=== PATIENT | female | born 1965 | race Caucasian/White ===

== ENCOUNTER 2021-03-26 08:14 | Outpatient (CLI) | payer OTHER, SELFPAY ==
[2021-03-26 19:12] LABS: Basophils Absolute Auto 0.1 K/mm3 (0.0-0.1); Eosinophils Absolute Auto 0.1 K/mm3 (0-0.3); Eosinophils Percent Auto 2.3 % (0-4.4); Hematocrit 40.8 % (37.0-47.0); Hemoglobin 12.7 g/dL (12.0-15.0); Immature Granulocyte Absolute 0.01 K/mm3 (0.00-0.031); Immature Granulocyte Percent A 0.2 % (0-0.5); Lymphocytes Absolute Auto 1.36 K/mm3 (0.9-3.2); Mean Corpuscular HGB Conc 31.1 g/dl (32-36); Mean Corpuscular Hemoglobin 31.9 pg (26-34); Mean Corpuscular Volume 102.5 fl (80-100); Mean Platelet Volume 10.3 fl (7.4-10.4); Monocytes Absolute Auto 0.4 K/mm3 (0.1-0.6); Monocytes Percent Auto 8.8 % (2.6-8.5); Neutrophils Absolute Auto 2.9 K/mm3 (1.3-6.7); Neutrophils Percent Auto 59.7 % (45.5-73.1); Platelet Count Result 253 k/mm3 (150-375); Red Blood Count 3.98 M/mm3 (4.2-5.4); Red Cell Distribution Width 11.8 % (11.5-14.5); White Blood Count 4.9 K/mm3 (4.5-10.0)
[2021-03-26 19:17] LABS: Alanine Aminotransferase 29 U/L (4-35); Albumin Level 4.6 g/dL (3.5-5.1); Alkaline Phosphatase 51 U/L (38-126); Anion Gap 8 mmol/L (8-16); Aspartate Amino Transferase 31 U/L (14-36); Bilirubin,Total 0.4 mg/dL (0.2-1.3); Blood Urea Nitrogen 14 mg/dL (7-17); Calcium 9.9 mg/dL (8.4-10.2); Carbon Dioxide 29 mmol/L (22-30); Chloride 104 mmol/L (98-107); Cholesterol 256 mg/dL (0-200); Estimated Glomerular Filt Rate > 60; Glucose 94 mg/dL (65-110); HDL Direct 83 mg/dL; Potassium 4.4 mmol/L (3.4-5.0); Sodium 141 mmol/L (137-145); Triglycerides 105 mg/dL (<150)
[2021-03-26 19:27] LABS: LDL Cholesterol Direct 144 mg/dL
== END 2021-03-26 08:15 | disposition home or self-care (01) ==
LOC: ANHBWCLAB 08:15
PROVIDERS: PCP Family Medicine; Visit Provider Family Medicine
DX: Z00.00 Encounter for general adult medical examination without abnormal findings (principal)
CPT/HCPCS: 36415; 80053; 80061; 85025

== ENCOUNTER 2023-01-04 08:37 | Outpatient (CLI) | payer OTHER, SELFPAY ==
[2023-01-04 18:31] LABS: Hematocrit 41.3 % (37.0-47.0); Hemoglobin 12.8 g/dL (12.0-15.0); Mean Corpuscular Hemoglobin 31.5 pg (26-34); Mean Corpuscular Volume 101.7 fl (80-100); Mean Platelet Volume 10.5 fl (7.4-10.4); Platelet Count Result 231 k/mm3 (150-375); Red Blood Count 4.06 M/mm3 (4.2-5.4); Red Cell Distribution Width 11.7 % (11.5-14.5); White Blood Count 3.7 K/mm3 (4.5-10.0)
[2023-01-04 19:52] LABS: Alanine Aminotransferase 24 U/L (6-35); Albumin Level 4.7 g/dL (3.5-5.1); Alkaline Phosphatase 46 U/L (38-126); Anion Gap 5 mmol/L (8-16); Aspartate Amino Transferase 47 U/L (14-36); Bilirubin,Total 0.6 mg/dL (0.2-1.3); Blood Urea Nitrogen 15 mg/dL (7-17); Calcium 9.5 mg/dL (8.4-10.2); Carbon Dioxide 31 mmol/L (22-30); Chloride 101 mmol/L (98-107); Cholesterol 248 mg/dL (0-200); Estimated Glomerular Filt Rate > 60; Glucose 85 mg/dL (65-110); HDL Direct 74 mg/dL; Potassium 4.4 mmol/L (3.4-5.0); Sodium 137 mmol/L (137-145); Triglycerides 106 mg/dL (<150)
[2023-01-04 20:03] LABS: LDL Cholesterol Direct 128 mg/dL
== END 2023-01-04 08:38 | disposition home or self-care (01) ==
LOC: ANHBWCLAB 08:38
PROVIDERS: PCP Family Medicine; Visit Provider Family Medicine
DX: Z00.00 Encounter for general adult medical examination without abnormal findings (principal)
CPT/HCPCS: 36415; 80053; 80061; 85027

== ENCOUNTER 2023-05-23 10:10 | Outpatient (CLI) | payer OTHER, SELFPAY ==
[2023-05-23 19:27] LABS: Appearance Urine Clear (Clear); Bacteria Urine 2+ /hpf; Bilirubin Urine Negative (Negative); Blood Urine Negative (Negative); Color Urine Yellow (Yellow); Glucose Urine UA Negative (Negative); Ketones Urine Negative (Negative); Leukocyte Esterase Ur 1+ LEU/UL (NEGATIVE); Nitrate Urine Positive (Negative); Non Pathogenic Casts 0-2; Protein Urine Negative (Negative); RBC Urine 0-2 /hpf (0-2); Specific Grav Ur 1.009 (1.001-1.035); Squamous Epithelial Cell Urine Occasional /hpf (Few); Urobilinogen Urine 0.2 mg/dL (<2.0); WBC Urine 21-50 /hpf (0-3); pH Urine 6.5 (5.0-9.0)
[2023-05-23 19:45] LABS: Add Urine Microscopic? YES
== END 2023-05-23 10:11 | disposition home or self-care (01) ==
PROVIDERS: PCP Nurse Practitioner Adult Health; Visit Provider Nurse Practitioner Adult Health
DX: R39.9 Unspecified symptoms and signs involving the genitourinary system (principal)
CPT/HCPCS: 81001

== ENCOUNTER 2024-11-07 07:11 | Outpatient (CLI) | payer OTHER, SELFPAY ==
[2024-11-07 18:34] LABS: Hematocrit 41.0 % (37.0-47.0); Hemoglobin 13.1 g/dL (12.0-15.0); Mean Corpuscular HGB Conc 32.0 g/dl (32-36); Mean Corpuscular Hemoglobin 32.3 pg (26-34); Mean Corpuscular Volume 101.0 fl (80-100); Platelet Count Result 239 k/mm3 (150-375); Red Blood Count 4.06 M/mm3 (4.2-5.4); White Blood Count 3.4 K/mm3 (4.5-10.0)
[2024-11-07 18:50] LABS: Add Urine Microscopic? YES; Appearance Urine Cloudy (Clear); Glucose Urine UA Negative (Negative); Leukocyte Esterase Ur 3+ LEU/UL (Negative); Nitrate Urine Positive (Negative); Non Pathogenic Casts 0-2; Specific Grav Ur 1.014 (1.001-1.035)
[2024-11-07 19:45] LABS: Alanine Aminotransferase 21 U/L (6-35); Albumin Level 4.8 g/dL (3.5-5.1); Alkaline Phosphatase 52 U/L (38-126); Anion Gap 9 mmol/L (4-12); Aspartate Amino Transferase 55 U/L (14-36); Bilirubin,Total 0.6 mg/dL (0.2-1.3); Blood Urea Nitrogen 13 mg/dL (7-17); Calcium 9.8 mg/dL (8.4-10.2); Carbon Dioxide 30 mmol/L (22-30); Chloride 100 mmol/L (98-107); Cholesterol 259 mg/dL (0-200); Estimated Glomerular Filt Rate > 60; Glucose 87 mg/dL (65-110); HDL Direct 80 mg/dL; Potassium 4.3 mmol/L (3.4-5.0); Sodium 139 mmol/L (137-145); Total Protein 7.9 g/dL (6.3-8.2); Triglycerides 85 mg/dL (<150)
[2024-11-07 19:46] LABS: Iron 144 ug/dL (37-170)
[2024-11-07 19:55] LABS: Percent Iron Saturation 45 % (20-50)
[2024-11-07 20:20] LABS: Hepatitis B Surface Antigen Negative (Negative)
[2024-11-07 20:26] LABS: HAV RESULT Negative (Negative); Hepatitis B Core IgM Result Negative (Negative)
[2024-11-07 20:32] LABS: Ferritin 126.00 ng/mL (11.1-264)
[2024-11-07 20:38] LABS: Vitamin B12 263.0 pg/mL (239-931)
== END 2024-11-07 07:12 | disposition home or self-care (01) ==
LOC: ANHASCIMG 07:12 → ANHBWCLAB 07:13
PROVIDERS: PCP Family Medicine; Visit Provider Family Medicine
DX: R74.01 Elevation of levels of liver transaminase levels (principal); Z00.00 Encounter for general adult medical examination without abnormal findings; R39.9 Unspecified symptoms and signs involving the genitourinary system; D72.819 Decreased white blood cell count, unspecified
CPT/HCPCS: 36415; 80053; 80061; 80074; 81001; 82306; 82607; 82728; 83540; 83550; 85027; 87086

== ENCOUNTER 2024-11-29 08:11 | Outpatient (CLI) | payer OTHER, SELFPAY ==
--- NOTE | ~2024-11-29 | US_ITS ---
US abdomen limited Indication: R74.01 - Elevation of levels of liver transaminase levels Comparison: None Technique: Carrasco-scale and color Doppler images were obtained. Findings: LIVER: Unremarkable, liver contours intact, no lesions. Normal echogenicity. . GALLBLADDER/BILIARY: There is a probable gallbladder polyp measuring 3 x 3 mm, no wall thickening or pericholecystic fluid. CBD 4 mm. Young Harris sign negative. PANCREAS: Unremarkable. Right Kidney: Right kidney 10.5 cm, normal. Impression: 1. Probable gallbladder polyp Reviewed, dictated and finalized at location A. Impression: 1. Probable gallbladder polyp
== END 2024-11-29 08:12 | disposition home or self-care (01) ==
LOC: MICIMG 08:11
PROVIDERS: PCP Family Medicine; Visit Provider Family Medicine
DX: R74.01 Elevation of levels of liver transaminase levels (principal)
CPT/HCPCS: 76705

== ENCOUNTER 2025-02-23 09:10 | Emergency (ER) | payer OTHER, SELFPAY ==
--- OUTSIDE RECORDS SUMMARY | 2025-02-23 09:12 | XMS_ITS | Encounter Summary ---
Author Organization Address [address] [place] [address] Care Team Providers Care Camera Engineer Name Role Phone Unavailable Primary Care Provider Unavailabl e Encounter Details Date Type Department Care Team (Late st Contact Info) Description 04/21/2006 Orders Only [facility] Internal Medicine [address] [address] Grabiel Huang MD [address] [place] [phone] Social History Tobacco Use Types Packs/Day Years Used Date Smoking Tobacco: Never Assessed Comments Unknown Sex and Gender Information Value Date Recorded Sex Assigned at Not on file Legal Sex Female 4:47 AM WAD IMPREGNATOR Gender Identity Not on file Sexual Orientation Not on file documented as of this encounter Progress Notes * Grabiel Huang MD - 08/10/2007 4:43 PM CDT TIME:09:15 am PATIENT`S HOME PHONE: PATIENT`S WORK PHONE: PATIENT`S INSURANCE: [facility] WHO TOOK THE CALL: Venecia Carrillo L GENERAL INFORMATION ALTERNATIVE PHONE NUMBER: [phone] cell WHO CALLED: Patient called. PHARMACY NUMBER: [phone] SECTION 1: The Singulair samples you gave the pt at her last ov really worked. REQUESTED ACTION emma 04/21/06 at 09:17 am: MEDICATION REQUEST: New script for Singulair called into pharmacy. DOCTOR`S RESPONSE: estefanía 04/21/06 at 09:37 am MEDICATIONS: Call in to Pharmacy SINGULAIR ORAL TABLET 10 MG, 1 Every Day, 90 Dispensed, 3 Fills, 90 Duration/Days Supply, status: CONTINUED, 04/21/2006. FINAL ACTION: farrjr 04/21/06 at 10:55 am Called pharmacy at 04/21/06 at 10:55 am. documented in this encounter Plan of Treatment Not on file documented as of this encounter Visit Diagnoses Not on filedocumented in this encounter
--- OUTSIDE RECORDS SUMMARY | 2025-02-23 09:12 | XMS_ITS | Clinical Summary ---
Author Organization [facility] Address [address] Real: Epic Prelude ADT ALEKSANDAR CAZARES [address] Care Team Providers Care Cooker Sulfite Name Role Phone Unavailable Primary Care Provider Unavailabl e Medications ADVAIR DISKUS 100 MCG-50 MCG/DOSE FOR INHALATION 1 Two Times A Day 0.00 0 01/25/2006 Active ZITHROMAX Z-HINA 250 MG TAB DIRECTED 1.00 0 12/26/2005 Active PATANOL 0.1 % EYE DROPS 1 Two Times A Day 0.00 1 06/22/2005 Active ARLIN 180 MG TAB 1 Every Day 30.00 3 01/25/2006 Active ADVAIR DISKUS 250 MCG-50 MCG/DOSE FOR INHALATION 1 Two Times A Day 2.00 2 03/01/2006 Active SINGULAIR 10 MG TAB 1 Every Day 90.00 3 04/21/2006 Active Active Problems Problem Noted Date Diagnosed Date Unspecified asthma(493.90) 03/01/2006 Respiratory abnormality, unspecified 01/25/2006 Routine general medical exam ination at a health care facility 06/22/2005 Family history of other cardiovascular diseases( V17.49) 06/22/2005 Overview (04/14/2010): Updating IMO/ICD9 Code and Description Allergic rhinitis, cause unspecified 06/22/2005 Impacted cerumen 06/22/2005 Screening for thyroid disorder 06/22/2005 Screening for lipoid disorders 06/22/2005 Need for prophylactic vaccin ation with tetanus-diphtheria (Td) 06/22/2005 Immunizations Immunization Administration Dates Next Due (TDVAX)(7 YRS UP) TETANUS AN D DIPHTHERIA TOXOIDS, ADSORBED (2 LF OF TETANUS TOXOID AND 2 LF OF DIPHTHERIA TOXOID), 0.5ML (PF), IM 06/22/2005 Social History Tobacco Use Types Packs/Day Years Used Date Smoking Tobacco: Never Assessed Comments Unknown Sex and Gender Information Value Date Recorded Sex Assigned at Not on file Legal Sex Female 4:47 AM INTEGRATION PROJECT MANAGER Gender Identity Not on file Sexual Orientation Not on file Last Filed Vital Signs Vital Sign Reading Time Taken Comments Blood Pressure 110/70 03/01/2006 11:45 AM INTEGRATION PROJECT MANAGER Pulse - - Temperature 36.9 C (98.4 F) 01/25/2006 2:00 PM INTEGRATION PROJECT MANAGER Respiratory Rate - - Oxygen Saturation - - Inhaled Oxygen Concentration - - Weight 56.7 kg (125 lb) 03/01/2006 11:45 AM INTEGRATION PROJECT MANAGER Height - - Body Mass Index - - Plan of Treatment Health Maintenance Due Date Last Done Comments HPV/Cotest (21-29) 02/02/1985 CERVICAL CANCER SCREENING 02/02/1994 HPV/Cotest (30-65) 02/02/1994 PAP SMEAR 02/02/1994 BREAST CANCER SCREENING 2004 DTAP/TDAP/TD VACCINES (1 - Tdap) 06/23/2005 06/23/19 06 COLORECTAL SCREENING 02/02/2009 Colorectal Cancer Screening 02/02/2009 FIT-DNA Q 3 years 02/02/2009 FIT/FOBT Q 1 year 02/02/2009 Flex Sig/CT Colonography Q 5 years 02/02/2009 ZOSTER VACCINE (1 of 2) 02/02/2014 INFLUENZA VACCINE (#1) 2024 RSV VACCINE (60+ or ) (1 - 1-dose 75+ series) 02/02/2039
--- OUTSIDE RECORDS SUMMARY | 2025-02-23 09:13 | XMS_ITS | Encounter Summary ---
Author Organization [facility] Address [address] [place] [address] Care Team Providers Care Tariff Supervisor Name Role Phone Unavailable Primary Care Provider Unavailabl e Encounter Details Date Type Department Care Team (Late st Contact Info) Description 01/25/2006 Outpatient Historical [facility] Internal Medicine [address] [address] Grabiel Huang MD [address] [place] [phone] Social History Tobacco Use Types Packs/Day Years Used Date Smoking Tobacco: Never Assessed Comments Unknown Sex and Gender Information Value Date Recorded Sex Assigned at Not on file Legal Sex Female 4:47 AM REFRACTIVE SURGEON Gender Identity Not on file Sexual Orientation Not on file documented as of this encounter Last Filed Vital Signs Vital Sign Reading Time Taken Comments Blood Pressure 120/70 01/25/2006 2:00 PM REFRACTIVE SURGEON Pulse - - Temperature 36.9 C (98.4 F) 01/25/2006 2:00 PM REFRACTIVE SURGEON Respiratory Rate - - Oxygen Saturation - - Inhaled Oxygen Concentration - - Weight 56.2 kg (124 lb) 01/25/2006 2:00 PM REFRACTIVE SURGEON Height - - Body Mass Index - - documented in this encounter Plan of Treatment Not on file documented as of this encounter Visit Diagnoses Not on filedocumented in this encounter
--- OUTSIDE RECORDS SUMMARY | 2025-02-23 09:13 | XMS_ITS | Encounter Summary ---
Author Organization [facility] Address [address] [place] [address] Care Team Providers Care Hops Farmworker Name Role Phone Unavailable Primary Care Provider Unavailabl e Encounter Details Date Type Department Care Team (Late st Contact Info) Description 03/01/2006 Outpatient Historical [facility] Internal Medicine [address] [address] Grabiel Huang MD [address] [place] [phone] Social History Tobacco Use Types Packs/Day Years Used Date Smoking Tobacco: Never Assessed Comments Unknown Sex and Gender Information Value Date Recorded Sex Assigned at Not on file Legal Sex Female 4:47 AM CRATE LINER Gender Identity Not on file Sexual Orientation Not on file documented as of this encounter Last Filed Vital Signs Vital Sign Reading Time Taken Comments Blood Pressure 110/70 03/01/2006 11:45 AM CRATE LINER Pulse - - Temperature - - Respiratory Rate - - Oxygen Saturation - - Inhaled Oxygen Concentration - - Weight 56.7 kg (125 lb) 03/01/2006 11:45 AM CRATE LINER Height - - Body Mass Index - - documented in this encounter Plan of Treatment Not on file documented as of this encounter Visit Diagnoses Not on filedocumented in this encounter
--- OUTSIDE RECORDS SUMMARY | 2025-02-23 09:13 | XMS_ITS | Encounter Summary ---
Author Organization [facility] Address [address] [place] [address] Care Team Providers Care Science Education Professor Name Role Phone Unavailable Primary Care Provider Unavailabl e Encounter Details Date Type Department Care Team (Late st Contact Info) Description 06/22/2005 Outpatient Historical [facility] Internal Medicine [address] [address] Grabiel Huang MD [address] [place] [phone] Social History Tobacco Use Types Packs/Day Years Used Date Smoking Tobacco: Never Assessed Comments Unknown Sex and Gender Information Value Date Recorded Sex Assigned at Not on file Legal Sex Female 4:47 AM PULP MAKER Gender Identity Not on file Sexual Orientation Not on file documented as of this encounter Plan of Treatment Not on file documented as of this encounter Visit Diagnoses Not on filedocumented in this encounter
--- OUTSIDE RECORDS SUMMARY | 2025-02-23 09:13 | XMS_ITS | Encounter Summary ---
Author Organization [facility] Address [address] [place] [address] Care Team Providers Care Director Of Recruitment Name Role Phone Unavailable Primary Care Provider Unavailabl e Encounter Details Date Type Department Care Team (Late st Contact Info) Description 06/22/2005 Outpatient Historical [facility] Internal Medicine [address] [address] Grabiel Huang MD [address] [place] [phone] Social History Tobacco Use Types Packs/Day Years Used Date Smoking Tobacco: Never Assessed Comments Unknown Sex and Gender Information Value Date Recorded Sex Assigned at Not on file Legal Sex Female 4:47 AM DITTO MACHINE OPERATOR Gender Identity Not on file Sexual Orientation Not on file documented as of this encounter Plan of Treatment Not on file documented as of this encounter Visit Diagnoses Not on filedocumented in this encounter
--- OUTSIDE RECORDS SUMMARY | 2025-02-23 09:13 | XMS_ITS | Encounter Summary ---
Author Organization [facility] Address [address] [place] [address] Care Team Providers Care Painting Worker Name Role Phone Unavailable Primary Care Provider Unavailabl e Encounter Details Date Type Department Care Team (Late st Contact Info) Description 06/22/2005 Outpatient Historical [facility] Internal Medicine [address] [address] Grabiel Huang MD [address] [place] [phone] Social History Tobacco Use Types Packs/Day Years Used Date Smoking Tobacco: Never Assessed Comments Unknown Sex and Gender Information Value Date Recorded Sex Assigned at Not on file Legal Sex Female 4:47 AM LIFT BUILDER WHOLE Gender Identity Not on file Sexual Orientation Not on file documented as of this encounter Plan of Treatment Not on file documented as of this encounter Visit Diagnoses Not on filedocumented in this encounter
--- OUTSIDE RECORDS SUMMARY | 2025-02-23 09:13 | XMS_ITS | Encounter Summary ---
Author Organization [facility] Address [address] [place] [address] Care Team Providers Care Maintenance Painter Apprentice Name Role Phone Unavailable Primary Care Provider Unavailabl e Encounter Details Date Type Department Care Team (Late st Contact Info) Description 06/22/2005 Outpatient Historical [facility] Internal Medicine [address] [address] Grabiel Huang MD [address] [place] [phone] Social History Tobacco Use Types Packs/Day Years Used Date Smoking Tobacco: Never Assessed Comments Unknown Sex and Gender Information Value Date Recorded Sex Assigned at Not on file Legal Sex Female 4:47 AM MEDICAL VAN DRIVER Gender Identity Not on file Sexual Orientation Not on file documented as of this encounter Plan of Treatment Not on file documented as of this encounter Visit Diagnoses Not on filedocumented in this encounter
--- OUTSIDE RECORDS SUMMARY | 2025-02-23 09:13 | XMS_ITS | Encounter Summary ---
Author Organization [facility] Address [address] [place] [address] Care Team Providers Care Wash Oil Cooler Operator Name Role Phone Unavailable Primary Care Provider Unavailabl e Encounter Details Date Type Department Care Team (Late st Contact Info) Description 06/22/2005 Orders Only [facility] Internal Medicine [address] [address] Grabiel Huang MD [address] [place] [phone] Social History Tobacco Use Types Packs/Day Years Used Date Smoking Tobacco: Never Assessed Comments Unknown Sex and Gender Information Value Date Recorded Sex Assigned at Not on file Legal Sex Female 4:47 AM FRETTED INSTRUMENT REPAIRER Gender Identity Not on file Sexual Orientation Not on file documented as of this encounter Progress Notes * Grabiel Huang MD - 12/28/2007 12:16 AM CDT SPECIALIST REFERRAL REQUEST DATE: JUN 22, 2005 Note created by: Mukund Mendez N 09:07 a Patient Name : MIGUELINA CULLEN Address: [address] [place] [address] D.O.B: 1965 SSN: Parent/Guardian if applicable: Patient Insurance: ID#: Group/Policy#: * Grabiel Huang MD - 12/28/2007 12:16 AM CDT SPECIALIST REFERRAL REQUEST DATE: JUN 22, 2005 Note created by: Mukund Mendez N 09:09 a Patient Name : MIGUELINA CULLEN Address: [address] [place] [address] D.O.B: 1965 SSN: Parent/Guardian if applicable: Patient Insurance: ID#: Group/Policy#: * Grabiel Huang MD - 12/28/2007 12:16 AM CDT SPECIALIST REFERRAL REQUEST DATE: JUN 22, 2005 Note created by: Mukund Mendez, Rachid 09:10 a Patient Name : MIGUELINA CULLEN Address: [address] [place] [address] D.O.B: 1965 SSN: Parent/Guardian if applicable: Patient Insurance: ID#: Group/Policy#: * Grabiel Huang MD - 12/28/2007 12:16 AM CDT WEIGHT: 122lbs BLOOD PRESSURE: 120/70 Right Arm Sitting NURSE NAME: Vanessa Mukund, N CHIEF COMPLAINT Seen as a new patient to get established with the practice. HISTORY: HISTORY: V17.4-FAMILY HISTORY OF CARDIOVASCULAR DISEASE father AAA 477.9-RHINITIS ALLERGIC UNSPECIFIED mild sinus, eye sx with season change V70.0-ROUTINE GENERAL MEDICAL EXAMINATION 380.4-CERUMEN IMPACTION recurrent right ear ROS: GENERAL: Normal activity and energy level, no change in appetite. No major weight gain or loss. No malaise, chills, fever, diaphoresis. ALLERGIC/IMMUNOLOGIC: HAS ENVIRONMENTAL ALLERGIES. EYES: No vision changes or diplopia. ENT: No hearing loss, epistaxis, hoarseness or dysphagia. No sinus congestion. ENDOCRINE: No heat or cold intolerance, no excessive thirst. CARDIAC: No chest pain, palpitations, orthopnea, dyspnea on exertion, or paroxysmal nocturnal dyspnea. RESPIRATORY: No dyspnea, cough, hemoptysis or wheezing. SKIN/BREAST/CHEST: No rashes or non-healing lesions. No breast symptoms noted. HEMATOLOGIC/LYMPHATIC: No anemia, easy bruising, bleeding or swollen nodes. : No frequency, urgency, hematuria or dysuria. GI: No abdominal pain, nausea, vomiting, diarrhea, constipation, melena, or hematochezia. NEUROLOGIC: No weakness, dizziness, loss of consciousness, transient ischemic symptoms, or seizures. MUSCULOSKELETAL: No muscle or joint pain, weakness, swelling or inflammation. No restriction of motion, no atrophy or backache. PSYCHIATRIC: No increased nervousness, mood changes or depression. Coping well. PAST MEDICAL HISTORY: SURGICAL: , Tubal, Lumpectomy-left breast FAMILY HISTORY: FATHER: The father is living. Illnesses: Hypertension. MOTHER: The mother is living., Thyroid Prob. SIBLINGS: 4 Brothers all Healthy SOCIAL HISTORY: MARITAL HISTORY: , living with spouse. LIVING WILL: The patient does not have a living will. TOBACCO USE: Has no significant smoking history. OCCUPATION: . Deep Fat Fry Cook ALCOHOL: Drinks a minimal amount of alcohol. CAFFEINE: A minimal amount of caffeinated beverages daily. EXERCISES: The patient exercises. DIET: Follows no specific diet. SAFETY ISSUES: Uses seat belts. PHYSICAL EXAMINATION: CONSTITUTIONAL: GENERAL APPEARANCE: Healthy appearing patient in no distress. EYES: CONJUNCTIVAE/LIDS: CONJUNCTIVAL INFLAMMATION BILATERALLY.mild EARS, NOSE, MOUTH AND THROAT: EARS: CERUMEN IN RIGHT EAR INCREASED. NECK/THYROID: Trachea midline. No thyroid enlargement, tenderness, or mass. No supraclavicular or cervical adenopathy. RESPIRATORY: Clear to auscultation and percussion. Normal respiratory effort. CARDIOVASCULAR: CARDIAC: Regular rhythm. No murmurs, rubs, or gallops. ARTERIAL: Aortic pulses of normal amplitude with no bruits. EDEMA/VARICOSITIES OF EXTREMITIES: No edema or varicosities. GASTROINTESTINAL: ABDOMEN: Soft, non-tender, without masses. Bowel sounds active. LIVER/SPLEEN/KIDNEY: No hepatosplenomegaly, tenderness or nodularity. Kidneys not palpable. OFFICE PROCEDURES: PROCEDURE: Ear lavage performed on patient. The cerumen impaction was successfully removed by ear wash irrigation so as to visualize TM. ASSESSMENT/PLAN: V70.0-ROUTINE GENERAL MEDICAL EXAMINATION LAB ORDERS: fasting Order number: [id number] Test Ordered: CBC (INCLUDES DIFF/PLT) 6399 Order number: [id number] Test Ordered: COMPREHENSIVE METABOLIC PANEL W/ GLOMERULAR FILTRATION RATE, ESTIMATED (EGFR) 90952 Order number: [id number] Test Ordered: LIPID PANEL 7600 Order number: [id number] Test Ordered: TSH 899 Order number: [id number] Test Ordered: INJ-TETANUS & DIPTHERIA TOXOID 77620 V17.4-FAMILY HISTORY OF CARDIOVASCULAR DISEASE discussed, check chol 477.9-RHINITIS ALLERGIC UNSPECIFIED MEDICATIONS: PATANOL OPHTHALMIC SOLUTION 0.1 %, 1 Two Times A Day, 1 Fills, 30 Duration/Days Supply, status: NEWPRESCRIPTION, 06/22/2005. 380.4-CERUMEN IMPACTION LAB ORDERS: Order number: [id number] Test Ordered: REMOVE CERUMEN IMPACT 88553 RETURN VISIT : Instructed to call if not improving. Electronically Signed by: Grabiel Huang MD on Wednesday, June 22, 2005 documented in this encounter Plan of Treatment Not on file documented as of this encounter Visit Diagnoses Not on filedocumented in this encounter
--- OUTSIDE RECORDS SUMMARY | 2025-02-23 09:13 | XMS_ITS | Encounter Summary ---
Author Organization [facility] Address [address] [place] [address] Care Team Providers Care Lye Treater Name Role Phone Unavailable Primary Care Provider Unavailabl e Encounter Details Date Type Department Care Team (Late st Contact Info) Description 12/26/2005 Orders Only [facility] Internal Medicine [address] [address] Grabiel Huang MD [address] [place] [phone] Social History Tobacco Use Types Packs/Day Years Used Date Smoking Tobacco: Never Assessed Comments Unknown Sex and Gender Information Value Date Recorded Sex Assigned at Not on file Legal Sex Female 4:47 AM DIRECTOR OF GLOBAL MARKETING Gender Identity Not on file Sexual Orientation Not on file documented as of this encounter Progress Notes * Grabiel Huang MD - 01/01/2008 8:45 PM CDT TIME:10:54 am PATIENT`S HOME PHONE: PATIENT`S WORK PHONE: PATIENT`S INSURANCE: [facility] WHO TOOK THE CALL: Venecia Carrillo L GENERAL INFORMATION ALTERNATIVE PHONE NUMBER: [phone] [facility] 8:30p w# WHO CALLED: Patient called. Patient reports no known allergies. PHARMACY NUMBER: [phone] PROBLEMS: CONGESTION: Patient complains of chest congestion, complains of sinus congestion. The symptoms began approximately 6 days ago. Therapies tried include cough syrup. COUGH:Patient complains of cough. The symptoms began approximately 6 days ago. Nothing coming up. Keeps her awake at night. Wheezing. HEADACHE: Patient complains of headache. off & on from coughing. SORE THROAT: Patient complains of sore throat. The sore throat began approximately 2 days ago. Since she's been coughing so much. SECTION 1: REQUESTED ACTION emma 12/26/05 at 10:58 am: MEDICATION REQUEST: Her first day off is . She works 12 hr shifts. Patient wants medications and can not come in. DOCTOR`S RESPONSE: estefanía 12/26/05 at 11:09 am MEDICATIONS: Call in to Pharmacy ZITHROMAX Z-HINA ORAL TABLET 250 MG, DIRECTED, 1 Dispensed, status: NEW PRESCRIPTION, 12/26/2005.See thurs if not improving FINAL ACTION: browyazmin 12/26/05 at 12:18 pm Called pharmacy at 12/26/05 at 12:18 pm. documented in this encounter Plan of Treatment Not on file documented as of this encounter Visit Diagnoses Not on filedocumented in this encounter
--- OUTSIDE RECORDS SUMMARY | 2025-02-23 09:13 | XMS_ITS | Encounter Summary ---
Author Organization [facility] Address [address] [place] [address] Care Team Providers Care Boner Meat Name Role Phone Unavailable Primary Care Provider Unavailabl e Encounter Details Date Type Department Care Team (Late st Contact Info) Description 01/25/2006 Orders Only [facility] Internal Medicine [address] [address] Grabiel Huang MD [address] [place] [phone] Social History Tobacco Use Types Packs/Day Years Used Date Smoking Tobacco: Never Assessed Comments Unknown Sex and Gender Information Value Date Recorded Sex Assigned at Not on file Legal Sex Female 4:47 AM PIANO CASE MAKER Gender Identity Not on file Sexual Orientation Not on file documented as of this encounter Progress Notes * Grabiel Huang MD - 01/01/2008 11:38 PM CDT WEIGHT: 124lbs BLOOD PRESSURE: 120/70 Right Arm Sitting TEMPERATURE: 36.89??c Oral NURSE NAME: JonhTram R CHIEF COMPLAINT Patient complains of shortness of breath. watery eyes and sneezing. HISTORY: HISTORY: 477.9-RHINITIS ALLERGIC UNSPECIFIED worse x 1 mo 786.00-DYSPNEA AND RESP ABNORMALITY UNSPEC since illness 1 mo ago, intermittent cannot get breath PHYSICAL EXAMINATION: CONSTITUTIONAL: GENERAL APPEARANCE: Healthy appearing patient in no distress. EARS, NOSE, MOUTH AND THROAT: EARS: Tympanic membranes shiny without retraction. Canals unremarkable. Hearing grossly normal. ORAL: Inspection of gums, lips, palate, and teeth normal. No scars, lesions, or masses. Oral mucosaunremarkable with non-inflamed posterior pharynx. NECK/THYROID: Trachea midline. No thyroid enlargement, tenderness, [...] hepatosplenomegaly, tenderness or nodularity. Kidneys not palpable. ASSESSMENT/PLAN: 477.9-RHINITIS ALLERGIC UNSPECIFIED rx 786.00-DYSPNEA AND RESP ABNORMALITY UNSPEC pk flow 300-350 MEDICATIONS: ARLIN ORAL TABLET 180 MG, 1 Every Day, 30 Dispensed, 3 Fills, status: NEW PRESCRIPTION, 01/25/2006. ADVAIR DISKUS INHALATION MISCELLANEOUS 100-50 MCG/DOSE, 1 Two Times A Day, 30 Duration/Days Supply,status: NEW PRESCRIPTION, 01/25/2006. LAB ORDERS: Order number: [id number] Test Ordered: [facility] MAINTENANCE: rec flu vaccine, consider pnvx at fu RETURN VISIT : Patient instructed to return in 1 month. Electronically Signed by: Grabiel Huang MD on Wednesday, January 25, 2006 documented in this encounter Plan of Treatment Not on file documented as of this encounter Visit Diagnoses Not on filedocumented in this encounter
--- OUTSIDE RECORDS SUMMARY | 2025-02-23 09:13 | XMS_ITS | Clinical Summary ---
Author Organization [facility] Address [address] [place] [address] Phone Care Team Providers Care Health Education Coordinator Name Role Phone Torito Salcido MD Primary Care Provider [phone] Encounters Date Type Department Care Team Description 01/07/2025 [facility]phone [facility] [address] [place] [id number] Torito Salcido MD 11/27/2024 Transcribe Orders [facility] Central Scheduling [address] [place] [address] Torito Salcido MD Other specified disorders of breast (Primary Dx) 11/25/2024 2:47 PM CDT - 11/25/2024 11:59 PM CDT [facility] [address] [place] [address] Torito Salcido MD Discharge Disposition: Discharged to home or Selfcare 11/24/2024 Travel from Last 3 Months Family History Medical History Relation Name Comments Breast Cancer Maternal Aunt Relation Name Status Comments Maternal Aunt Social History Tobacco Use Types Packs/Day Years Used Date Smoking Tobacco: Never Assessed Comments No Sex and Gender Information Value Date Recorded Sex Assigned at Not on file Legal Sex Female 7:42 PM CDT Gender Identity Not on file Sexual Orientation Not on file Plan of Treatment Health Maintenance Due Date Last Done Comments Hepatitis C Virus (HCV) Screening 1965 TdaP Immunization 1965 Pap Smear 02/02/1985 Cervical Cancer Screening (CCS) 02/02/1994 HPV/Cotest 02/02/1994 Cologuard 02/02/2009 Colonoscopy 02/02/2009 Colorectal Cancer Screening 02/02/2009 Immunochemical Fecal Occult Blood 02/02/2009 Pneumococcal Immunization (5 0+ years) (1 of 1 - PCV) 02/02/2014 Zoster Immunization (1 of 2) 02/02/2014 Influenza Immunization (#1) 2024 SARS-COV-2 Immunization ( - season) 2024 Mammogram 11/25/2025 11/25/2024, 06/28/2023, 11/16/2016 Respiratory Syncytial Virus (RSV) Immunization (Adult) (1 - 1-dose 75+ series) 02/02/2039 DTaP/Tdap/Td Immunization Discontinued 06/22/2005 Hepatitis B Immunization Aged Out No longer eligible based on patient's age to complete this topic Human Papillomavirus (HPV) Immunization Aged Out No longer eligible based on patient's age to complete this topic Meningococcal Immunization (ACWY) Aged Out No longer eligible based on patient's age to complete this topic Rotavirus Immunization Aged Out No lo nger eligible based on patient's age to complete this topic Procedures Procedure Name Priority Date/Time Associated Diagnosis Comments JANIS SCREENING BILATERAL DIGITAL W CAD W JEAN PIERRE Routine 11/25/2024 3:13 PM CDT Encounter for screening mammogram for breast cancer from Last 3 Months Results * JANIS SCREENING BILATERAL DIGITAL W CAD W JEAN PIERRE (11/25/2024 3:13 PM CDT) Anatomical Region Laterality Modality breast Bilateral Mammography 11/25/2024 2:47 PM CDT Impressions 11/25/2024 4:30 PM CDT IMPRESSION: Possible right breast focal asymmetry. Further evaluation with limited breast ultrasound and possible diagnostic mammogram is advised. RECOMMENDATION: Immediate follow-up. BI-RADS 0: Incomplete: Need additional imaging evaluation. Narrative 11/25/2024 4:30 PM CDT JANIS SCREENING BILATERAL DIGITAL W CAD W JEAN PIERRE EXAM DATE: 11/25/2024 2:57 PM HISTORY: 59 years year old Female. Encounter for screening mammogram for malignant neoplasm of breast TECHNIQUE: Standard bilateral mammographic views were obtained. Additional 3D tomographic mammography was also obtained. Current study was also evaluated with a Computer Aided Detection (CAD) system. COMPARISON: Comparison made with previous examination(s) dated (MG) 28-Jun-2023,(MG) 16-Nov-2016. FINDINGS: The breasts are heterogeneously dense, which may obscure small masses. (Category C) Right breast retroareolar area possible focal asymmetry noted and measures approximately 1 cm in size. Further evaluation with limited breast ultrasound and possible diagnostic mammogram is advised. No suspicious masses, calcifications, architectural distortion or other findings in the left breast. us Torito Salcido MD IMG MAMMO ORDERABLES Final Resu lt from Last 3 Months Insurance Care Teams Health Education Coordinator Relationship Specialty Start Date End Date Torito Salcido MD PCP - General Family Medicine 05/18/23
[2025-02-23 09:15] VITALS: BP 138/96; PULSE 94; RESP 16; TEMP 36.6; O2SAT 98
--- OUTSIDE RECORDS SUMMARY | 2025-02-23 09:17 | XMS_ITS | Encounter Summary ---
Author Organization [facility] Address [address] [place] [address] Care Team Providers Care Implementation Manager Name Role Phone Unavailable Primary Care Provider Unavailabl e Encounter Details Date Type Department Care Team (Late st Contact Info) Description 03/01/2006 Orders Only [facility] Internal Medicine [address] [phone] Grabiel Huang MD [address] [place] [id number] Social History Tobacco Use Types Packs/Day Years Used Date Smoking Tobacco: Never Assessed Comments Unknown Sex and Gender Information Value Date Recorded Sex Assigned at Not on file 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 HISTORY: HISTORY: 493.90-ASTHMA UNSPECIFIED some improvement still with mild dyspnea worse at work, some hoarseness PHYSICAL EXAMINATION: CONSTITUTIONAL: GENERAL APPEARANCE: Healthy appearing patient in no distress. NECK/THYROID: Trachea midline. No thyroid enlargement, tenderness, or mass. No supraclavicular or cervical adenopathy. RESPIRATORY: Clear to auscultation and percussion. Normal respiratory effort. CARDIOVASCULAR: CARDIAC: Regular rhythm. No murmurs, rubs, or gallops. ARTERIAL: No aortic bruits. EDEMA/VARICOSITIES OF EXTREMITIES: No edema or varicosities. GASTROINTESTINAL: ABDOMEN: Soft, non-tender, without masses. Bowel sounds active. LIVER/SPLEEN/KIDNEY: No hepatosplenomegaly, tenderness or nodularity. Kidneys not palpable. ASSESSMENT/PLAN: 493.90-ASTHMA UNSPECIFIED pk flow 425, discussed med, try alt, consider assurance assistant referral if not improving. 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 SINGULAIR ORAL TABLET 10 MG, 1 Every Day, 30 Dispensed, status: NEW PRESCRIPTION, 03/01/2006. RETURN VISIT : Patient instructed to return in 2 months. Electronically Signed by: Grabiel Huang MD on Wednesday, March 01, 2006 documented in this encounter Plan of Treatment Not on file documented as of this encounter Visit Diagnoses Not on filedocumented in this encounter
--- NOTE | 2025-02-23 09:20 | ED.URI ---
HPI - URI/Sore Throat General Chief Complaint: Upper Respiratory Infection Stated Complaint: Chest Congestion/Cough Time Seen by Provider: 02/23/25 09:20 Source: patient Mode of arrival: ambulatory Limitations: no limitations History of Present Illness HPI Narrative: 60 yo F presents with c/o cough, chest congestion, fatigue for 3 days. chest tightness when breathing starting today. Hx of pneumonia and bronchitis. States feels similar to when i had pneumonia. AFebrile. All systems reviewed and negative except as noted above. Related Data Allergies Allergy/AdvReac Type Severity Reaction Status Date / Time No Known Allergies Allergy Verified 02/23/25 09:19 [facility] Surgical History Surgical History History of breast biopsy H/O section Family History Family History Father Heart problem Mother Heart problem Thyroid disorder Sibling Heart problem Grandparent Breast cancer Social History Social History Smoking status: Never smoker Alcohol intake: current Drinks per week: 6 Substance use: never Lack of Transportation: No Lack of Food: Never True Current Housing: I Have Housing Concerned About Future Housing: No Difficulty Paying Gas/Electric Bills: No Difficulty Paying for Meds: No Currently Unemployed: No Education: Trade/Vocational Certificate Living arrangements: with family Gender identity (if verbalized by the patient): Female Comments At time of signature, agree with nursing past medical, surgical, social and family history. There is no relevant family history pertinent to the presenting complaint. Exam Narrative: GENERAL: This is a well-nourished, well-developed patient, Ill-appearing but in no acute distress HEAD: normocephalic, atraumatic. EYES: PERRL. Sclera clear/white. Vision is grossly intact. EARS: External ears normal, auditory canals clear and without drainage, TMs normal without perforation. Hearing grossly intact. NOSE: External nose normal with no obvious nasal discharge, nares without redness, no rhinorrhea. THROAT: Mucous membranes moist, posterior pharynx clear. NECK: Neck supple, non-tender without lymphadenopathy, masses or thyromegaly. CARDIOVASCULAR: Regular rate and rhythm without murmurs, gallops, or rubs. RESPIRATORY: decreased to bilateral lower lung harper otherwise clear. Breath sounds equal bilaterally. No wheezes, rales, or rhonchi. SKIN: warm, Dry, intact with no suspicious lesions or rash, good texture and turgor. NEURO: awake, alert, and oriented to person, place and time. There were no obvious focal neurologic abnormalities. EXTREMITIES: No joint tenderness, effusion, or edema noted. Course Course Level of Care: Express Care Visit Vital Signs Vital signs: Vital Signs Temperature 36.6 C 02/23/25 09:15 Pulse Rate 94 02/23/25 09:15 Respiratory Rate 16 02/23/25 09:15 Blood Pressure 138/96 H 02/23/25 09:15 Pulse Oximetry 98 02/23/25 09:15 Oxygen Delivery Room Air 02/23/25 09:15 Temperature 36.6 C 02/23/25 09:15 Pulse Rate 94 02/23/25 09:15 Respiratory Rate 16 02/23/25 09:15 Blood Pressure 138/96 H 02/23/25 09:15 Pulse Oximetry 98 02/23/25 09:15 Oxygen Delivery Room Air 02/23/25 09:15 Reviewed MDM MDM Narrative Medical decision making narrative: lung sounds decreased bilateral lower lung harper. Will treat patient for bronchitis due to patient's history. Patient is alert, nontoxic. No respiratory distress. Differential Diagnosis Differential Diagnosis: Differential diagnostic considerations for upper respiratory infection include upper respiratory infection, croup, otitis media, sinusitis, viral infection, bronchitis, influenza, pharyngitis, strep, uvulitis.? Discharge Plan Discharge Clinical Impression: Acute bronchitis Patient Disposition: Home Condition: Stable Instructions: Antibiotic Form, Acute Bronchitis (ED) Additional Instructions: Take medications as prescribed. Drink at least 64 oz of water a day. Place cool mist humidifier in bedroom where you sleep. Follow-up with your primary care physician if symptoms are not improving. Patient Language: Syriac Prescriptions: New albuterol sulfate 90 mcg/actuation HFA aerosol inhaler 2 puff inhalation Q4-6H PRN (Reason: shortness of breath or wheezing) Qty: 8.5 0RF doxycycline hyclate 100 mg capsule 100 mg PO BID 7 Days Qty: 14 0RF benzonatate 200 mg capsule 200 mg PO TID PRN (Reason: cough) Qty: 20 0RF methylprednisolone [Medrol (Manny)] 4 mg tablets,dose pack See Rx Instructions PO .COMPLEX Qty: 21 0RF Rx Instructions: orally per package directions Follow-up/Referrals: Torito Salcido MD [Primary Care Provider, [facility]] Time of Disposition: 09:29
== END 2025-02-23 09:34 | disposition home or self-care (01) ==
PROVIDERS: Emergency Provider Nurse Practitioner Family; PCP Family Medicine
DX: J20.9 Acute bronchitis, unspecified (principal)
CPT/HCPCS: 99213; G0463